=== PATIENT | female | born 1955 | race Hispanic/Latino ===

== ENCOUNTER 2024-07-01 12:24 | Outpatient (RCR) | payer MEDICARE ==
[~2024-07-01 12:24] MED LIST: COLLAGENASE OINTMENT 30 GM TUBE ONE; LIDOCAINE VISC 2% SOLN 15 ML UDC ONE; LIDOCAINE/PRILOCAINE 2.5-2.5% KIT ONE
== END 2024-07-04 ==
LOC: WCC 12:24
PROVIDERS: ATTEND Nurse Practitioner Family
DX: I87.312 Chronic venous hypertension (idiopathic) with ulcer of left lower extremity (principal); L97.822 Non-pressure chronic ulcer of other part of left lower leg with fat layer exposed

== ENCOUNTER 2024-07-22 12:48 | Outpatient (RCR) | payer MEDICARE ==
[2024-07-22] MEDS ORDERED: MINERAL OIL/PETROLAT/GLYCERI 6OZ BTL ONE (15:32)
[2024-07-30] MEDS ORDERED: LIDOCAINE VISC 2% SOLN 15 ML UDC ONE (13:31)
== END 2024-08-03 ==
LOC: WCC 12:48
PROVIDERS: ATTEND Nurse Practitioner Family
DX: I87.312 Chronic venous hypertension (idiopathic) with ulcer of left lower extremity (principal); L97.822 Non-pressure chronic ulcer of other part of left lower leg with fat layer exposed

== ENCOUNTER 2024-09-02 13:02 | Outpatient (RCR) | payer MEDICARE ==
[~2024-09-02 13:02] MED LIST changes: -COLLAGENASE OINTMENT 30 GM TUBE ONE; +MINERAL OIL/PETROLAT/GLYCERI 6OZ BTL ONE
== END 2024-09-03 ==
LOC: WCC 13:02
PROVIDERS: ATTEND Nurse Practitioner Family
DX: I87.312 Chronic venous hypertension (idiopathic) with ulcer of left lower extremity (principal); L97.822 Non-pressure chronic ulcer of other part of left lower leg with fat layer exposed

== ENCOUNTER 2024-12-07 05:40 | Inpatient (IN) | payer MEDICARE ==
[2024-12-03 13:20] LABS: ANION GAP 18.1 mmol/L (8-16); CALCIUM 9.4 mg/dL (8.4-10.2); CREATININE, SERUM 0.95 mg/dL (0.57-1.11); POTASSIUM 4.1 mmol/L (3.5-5.1)
[2024-12-03 14:14] LABS: BASOPHILS % 0.5 % (0.0-1.0); EOSINOPHILS # (AUTO) 0.2 (0.0-0.4); EOSINOPHILS % 2.9 % (0.0-6.0); HEMATOCRIT 38.7 % (34.2-44.1); HEMOGLOBIN 12.6 g/dL (12.0-16.0); LYMPHOCYTES # (AUTO) 0.9 (1.0-3.2); LYMPHOCYTES % 15.2 % (18.0-39.1); MEAN CORPUSCULAR HEMOGLOBIN 27.1 pg (28-32); MEAN CORPUSCULAR HGB CONC 32.6 g/dL (31-35); MEAN CORPUSCULAR VOLUME 83.2 fL (81-99); MONOCYTES # (AUTO) 0.5 (0.2-0.8); MONOCYTES % 8.8 % (4.4-11.3); NEUTROPHILS % 72.2 % (38.7-80.0); PLATELET COUNT 258 x10e3/uL (140-360); RED BLOOD COUNT 4.65 x10e6/uL (3.6-5.1); RED CELL DISTRIBUTION WIDTH 13.1 % (11.7-14.4); WHITE BLOOD COUNT 5.59 x10e3/uL (4.8-10.8)
[~2024-12-07] VITALS: Ht 167.6 cm; Wt 81.3 kg
[~2024-12-07 05:40] MED LIST changes: +AMLODIPINE BESYL5 MG PO; +ASPIRIN81 MG PO; +DOXAZOSIN MESYLA2 MG PO; +GABAPENTIN300 MG PO; +GLIPIZIDE ER5 MG PO; +LANTUS 3ML100 UNITS/ SC; -LIDOCAINE VISC 2% SOLN 15 ML UDC ONE; -LIDOCAINE/PRILOCAINE 2.5-2.5% KIT ONE; +LISINOPRIL-HCT1 EACH PO; +METFORMIN HCL500 MG PO; +METOPROLOL SUCC50 MG PO; -MINERAL OIL/PETROLAT/GLYCERI 6OZ BTL ONE; +VIT B12 PO
[2024-12-07] MEDS: PIPERACILLIN/TAZOBACTAM 3.375 GM VIAL ONE (05:56)
[2024-12-07] MEDS: CLINDAMYCIN 600MG / 50ML 50 ML IV ONE (05:57)
[2024-12-07] MEDS: LACTATED RINGER'S 1,000 ML ONE (05:57)
[2024-12-07] MEDS: GENTAMICIN 80MG/NS 100 ML 200 ML IV ONE (05:57)
[2024-12-07] MEDS ORDERED: LIDOCAINE HCL 2% LOCAL INJ 5 ML SDV VIAL INJ ONE (07:09)
[2024-12-07] MEDS ORDERED: ROCURONIUM BROMIDE 1 ML IV ONE (07:09)
[2024-12-07] MEDS ORDERED: FENTANYL CITRATE/PF 100MCG/2 ML INJ ONE ×2 (07:09→09:09)
[2024-12-07] MEDS ORDERED: PROPOFOL IV EMULSION 10 MG/ML 20 ML VIAL ONE (07:10)
[2024-12-07] MEDS ORDERED: SEVOFLURANE INHAL SOLN 250 ML PEN BTL ONE (07:10)
[2024-12-07] MEDS ORDERED: ACETAMINOPHEN 1000 MG/100 ML 100 ML IV ONE (07:10)
[2024-12-07] MEDS ORDERED: DEXAMETHASONE SOD PHOS INJ 4 MG/ML SDV ONE (07:37)
[2024-12-07] MEDS ORDERED: ONDANSETRON HCL INJ 2MG/ML 2ML 2 MG/ML VIAL ONE (07:37)
[2024-12-07] MEDS ORDERED: FAMOTIDINE 20 MG/2 ML VIAL IV ONE (07:37)
[2024-12-07] MEDS ORDERED: SUGAMMADEX SODIUM 200 MG/2 ML VIAL IV ONE (07:39)
[2024-12-07] MEDS ORDERED: EPHEDRINE SULFATE INJ 50 MG/ML VIAL ONE (07:44)
[2024-12-07] MEDS: ONDANSETRON HCL INJ 2MG/ML 2ML 2 MG/ML VIAL ONE (09:40)
[2024-12-07 10:00] VITALS: BP 153/65; PULSE 67; RESP 12; TEMP 97.7; O2SAT 97
[2024-12-07] MEDS: PROMETHAZINE HCL (IM) 25 MG/ML VIAL IM ONE (10:05)
[2024-12-07] MEDS ORDERED: PHENAZOPYRIDINE HCL 100 MG TAB PO PRN (10:15)
[2024-12-07] MEDS ORDERED: ACETAMINOPHEN 1000 MG/100 ML IV PRN (10:15)
[2024-12-07] MEDS ORDERED: DIPHENHYDRAMINE HCL 25 MG CAP PO PRN (10:15)
[2024-12-07 10:34] LABS: BASOPHILS % 0.4 % (0.0-1.0); EOSINOPHILS # (AUTO) 0.2 (0.0-0.4); EOSINOPHILS % 2.2 % (0.0-6.0); HEMATOCRIT 33.6 % (34.2-44.1); MEAN CORPUSCULAR HEMOGLOBIN 27.3 pg (28-32); MEAN CORPUSCULAR HGB CONC 32.7 g/dL (31-35); MEAN CORPUSCULAR VOLUME 83.4 fL (81-99); MONOCYTES # (AUTO) 0.5 (0.2-0.8); MONOCYTES % 7.1 % (4.4-11.3); NEUTROPHILS # (AUTO) 5.1 (2.1-6.9); NEUTROPHILS % 75.7 % (38.7-80.0); PLATELET COUNT 193 x10e3/uL (140-360); RED BLOOD COUNT 4.03 x10e6/uL (3.6-5.1); RED CELL DISTRIBUTION WIDTH 13.4 % (11.7-14.4); WHITE BLOOD COUNT 6.77 x10e3/uL (4.8-10.8)
[2024-12-07 11:13] LABS: CALCIUM 8.4 mg/dL (8.4-10.2); CREATININE, SERUM 0.74 mg/dL (0.57-1.11)
[2024-12-07 12:00] VITALS: BP 131/58; PULSE 89; RESP 20; TEMP 97.7; O2SAT 99
[2024-12-07] MEDS: SODIUM CHLORIDE 0.9% 1000ML 1,000 ML IV SCH (13:38)
[2024-12-07 14:02] VITALS: BP 134/56; PULSE 68; RESP 16; TEMP 97.7; O2SAT 98
[2024-12-07 16:15] VITALS: PULSE 96; RESP 18; O2SAT 96
[2024-12-07] MEDS: SCOPOLAMINE 1 MG PATCH ONE (18:31)
[2024-12-07 20:00] VITALS: BP 153/68; PULSE 105; RESP 18; TEMP 98.1; O2SAT 100
[2024-12-07 20:04] VITALS: PULSE 89; RESP 18; O2SAT 98
[2024-12-07] MEDS ORDERED: DEXTROSE 50% SYRINGE 50 ML IV PRN (20:30)
[2024-12-07] MEDS: INSULIN GLARGINE 100 UNITS/ML VIAL SQ SCH (22:13)
[2024-12-07] MEDS: INSULIN LISPRO 100 UNIT/1 ML 3ML VIAL SQ SCH (22:14)
[2024-12-08] VITALS (9 sets, daily range): BP systolic 141–161; BP diastolic 55–71; PULSE 74–96; RESP 16–20; TEMP 98–99.2; O2SAT 96–100
[2024-12-08] MEDS: ACETAMINOPHEN/CODEINE 300MG - 30MG TAB PO PRN (02:38)
[2024-12-08 05:43] LABS: BASOPHILS % 0.3 % (0.0-1.0); EOSINOPHILS # (AUTO) 0.1 (0.0-0.4); EOSINOPHILS % 1.1 % (0.0-6.0); HEMATOCRIT 31.7 % (34.2-44.1); HEMOGLOBIN 10.2 g/dL (12.0-16.0); LYMPHOCYTES # (AUTO) 0.8 (1.0-3.2); LYMPHOCYTES % 9.2 % (18.0-39.1); MEAN CORPUSCULAR HEMOGLOBIN 26.8 pg (28-32); MEAN CORPUSCULAR HGB CONC 32.2 g/dL (31-35); MEAN CORPUSCULAR VOLUME 83.2 fL (81-99); MONOCYTES # (AUTO) 0.8 (0.2-0.8); MONOCYTES % 9.2 % (4.4-11.3); NEUTROPHILS # (AUTO) 7.3 (2.1-6.9); NEUTROPHILS % 79.7 % (38.7-80.0); PLATELET COUNT 219 x10e3/uL (140-360); RED BLOOD COUNT 3.81 x10e6/uL (3.6-5.1); RED CELL DISTRIBUTION WIDTH 13.5 % (11.7-14.4); WHITE BLOOD COUNT 9.11 x10e3/uL (4.8-10.8)
[2024-12-08] MEDS ORDERED: GABAPENTIN 300 MG CAP PO PRN (06:00)
[2024-12-08 06:04] LABS: ANION GAP 15.7 mmol/L (8-16); CALCIUM 8.8 mg/dL (8.4-10.2); CREATININE, SERUM 0.71 mg/dL (0.57-1.11); POTASSIUM 3.7 mmol/L (3.5-5.1)
[2024-12-08] MEDS: AMLODIPINE BESYLATE 5 MG TAB PO SCH (09:28)
[2024-12-08] MEDS: DOXAZOSIN MESYLATE 2 MG TAB PO SCH (09:28)
[2024-12-08] MEDS: GLIPIZIDE 5 MG TAB ER PO SCH (09:28)
[2024-12-08] MEDS: METOPROLOL SUCCINATE 50 MG TAB XL PO SCH (09:29)
[2024-12-08] MEDS: ONDANSETRON HCL INJ 2MG/ML 2ML 2 MG/ML VIAL IV PRN (11:03)
[2024-12-08] MEDS: Morphine 2mg Syringe 2 MG/ML SYR IV PRN (11:03)
[2024-12-09 05:08] LABS: BASOPHILS % 0.5 % (0.0-1.0); EOSINOPHILS # (AUTO) 0.2 (0.0-0.4); EOSINOPHILS % 2.3 % (0.0-6.0); HEMATOCRIT 31.9 % (34.2-44.1); HEMOGLOBIN 10.3 g/dL (12.0-16.0); LYMPHOCYTES # (AUTO) 1.2 (1.0-3.2); LYMPHOCYTES % 15.1 % (18.0-39.1); MEAN CORPUSCULAR HGB CONC 32.3 g/dL (31-35); MEAN CORPUSCULAR VOLUME 83.7 fL (81-99); MONOCYTES # (AUTO) 0.9 (0.2-0.8); MONOCYTES % 10.8 % (4.4-11.3); NEUTROPHILS # (AUTO) 5.8 (2.1-6.9); NEUTROPHILS % 70.8 % (38.7-80.0); PLATELET COUNT 203 x10e3/uL (140-360); RED BLOOD COUNT 3.81 x10e6/uL (3.6-5.1); RED CELL DISTRIBUTION WIDTH 13.3 % (11.7-14.4); WHITE BLOOD COUNT 8.15 x10e3/uL (4.8-10.8)
[2024-12-09 05:34] LABS: ANION GAP 11.7 mmol/L (8-16); CALCIUM 8.1 mg/dL (8.4-10.2); CREATININE, SERUM 0.77 mg/dL (0.57-1.11); POTASSIUM 3.7 mmol/L (3.5-5.1)
[2024-12-09 08:00] VITALS: BP 135/54; PULSE 81; RESP 18; TEMP 98; O2SAT 100
[2024-12-09 08:40] VITALS: BP 135/54; PULSE 81; RESP 18; TEMP 98; O2SAT 100
[2024-12-09 09:05] VITALS: PULSE 79; RESP 18; O2SAT 97
[2024-12-09 12:00] VITALS: BP 135/60; PULSE 77; RESP 18; TEMP 98; O2SAT 100
[2024-12-09 16:33] VITALS: BP 140/63; PULSE 72; RESP 18; TEMP 99.2; O2SAT 99
== END 2024-12-09 17:00 | disposition home or self-care (01) | DRG 748 ==
LOC: OR 05:40 → PACU V 10:07 → MED/SURG 12:20
PROVIDERS: ADMIT Urology; ATTEND Internal Medicine
PROC: 0TSD0ZZ Reposition Urethra, Open Approach (ICD-10-PCS; 2024-12-07)
PROC: BT141ZZ Fluoroscopy of Kidneys, Ureters and Bladder using Low Osmolar Contrast (ICD-10-PCS; 2024-12-07)
PROC: 0JUC0KZ Supplement of Pelvic Region Subcutaneous Tissue and Fascia with Nonautologous Tissue Substitute, Open Approach (ICD-10-PCS; principal; 2024-12-07 07:29)
DX: N81.10 Cystocele, unspecified (principal); N39.0 Urinary tract infection, site not specified; N39.3 Stress incontinence (female) (male); R31.29 Other microscopic hematuria; N95.2 Postmenopausal atrophic vaginitis; I10 Essential (primary) hypertension; E11.9 Type 2 diabetes mellitus without complications; Z79.84 Long term (current) use of oral hypoglycemic drugs; Z79.4 Long term (current) use of insulin; E66.9 Obesity, unspecified; Z68.28 Body mass index [BMI] 28.0-28.9, adult; Z79.899 Other long term (current) drug therapy; Z79.82 Long term (current) use of aspirin
CPT/HCPCS: 36415; 71046; 74420; 80048; 82948; 83735; 85025; 93005; 94799; 96372; C1758; C1762; J1100; J1580; J1815; J2003; J2270; J2405; J2543; J2550; J7030

== ENCOUNTER 2025-01-02 20:49 | Emergency (ER) | payer MEDICARE ==
[~2025-01-02] VITALS: Ht 167.6 cm; Wt 81.2 kg
[2025-01-02 22:28] VITALS: PULSE 76; RESP 16; TEMP 98.2; O2SAT 100
== END 2025-01-02 22:20 | disposition home or self-care (01) ==
LOC: ER 21:00
DX: R33.9 Retention of urine, unspecified (principal); E11.9 Type 2 diabetes mellitus without complications
CPT/HCPCS: 51700; 87086; 99283

== ENCOUNTER → 2025-02-03 | Day surgery (SDC) | payer MEDICARE ==
[~2025-02-03] MED LIST changes: +ACETAMINOPHEN 1000 MG/100 ML 100 ML IV ONE; +DEXAMETHASONE SOD PHOS INJ 4 MG/ML SDV ONE; +FENTANYL CITRATE/PF 100MCG/2 ML INJ ONE; +LIDOCAINE HCL 2% LOCAL INJ 5 ML SDV VIAL INJ ONE; +METOCLOPRAMIDE HCL 10 MG/2ML VIAL ONE; +ONDANSETRON HCL INJ 2MG/ML 2ML 2 MG/ML VIAL ONE; +PHENYLEPHRINE HCL 1% 10 MG/ML VIAL ONE; +PROPOFOL IV EMULSION 10 MG/ML 20 ML VIAL ONE; +SEVOFLURANE INHAL SOLN 250 ML PEN BTL ONE
[2025-02-03] MEDS: PIPERACILLIN/TAZOBACTAM 3.375 GM VIAL ONE (11:53)
[2025-02-03] MEDS: CLINDAMYCIN 600MG / 50ML 50 ML IV ONE (11:53)
[2025-02-03] MEDS: LACTATED RINGER'S 1,000 ML ONE (11:54)
[2025-02-03 12:09] LABS: BASOPHILS % 0.6 % (0.0-1.0); EOSINOPHILS # (AUTO) 0.3 (0.0-0.4); EOSINOPHILS % 4.2 % (0.0-6.0); HEMATOCRIT 36.8 % (34.2-44.1); HEMOGLOBIN 12.1 g/dL (12.0-16.0); LYMPHOCYTES # (AUTO) 1.5 (1.0-3.2); LYMPHOCYTES % 22.3 % (18.0-39.1); MEAN CORPUSCULAR HEMOGLOBIN 26.7 pg (28-32); MEAN CORPUSCULAR HGB CONC 32.9 g/dL (31-35); MEAN CORPUSCULAR VOLUME 81.2 fL (81-99); MONOCYTES # (AUTO) 0.7 (0.2-0.8); MONOCYTES % 9.9 % (4.4-11.3); NEUTROPHILS # (AUTO) 4.3 (2.1-6.9); NEUTROPHILS % 62.6 % (38.7-80.0); PLATELET COUNT 266 x10e3/uL (140-360); RED BLOOD COUNT 4.53 x10e6/uL (3.6-5.1); RED CELL DISTRIBUTION WIDTH 13.4 % (11.7-14.4); WHITE BLOOD COUNT 6.87 x10e3/uL (4.8-10.8)
[2025-02-03 12:45] LABS: ALBUMIN/GLOBULIN RATIO 1.4 (0.8-2.0); ANION GAP 17.8 mmol/L (8-16); BILIRUBIN,TOTAL 0.8 mg/dL (0.2-1.2); CALCIUM 9.2 mg/dL (8.4-10.2); CREATININE, SERUM 0.78 mg/dL (0.57-1.11); POTASSIUM 3.8 mmol/L (3.5-5.1); TOTAL PROTEIN 6.9 g/dL (6.5-8.1)
[2025-02-03] MEDS: SCOPOLAMINE 1 MG PATCH ONE (14:21)
[2025-02-03 15:54] VITALS: TEMP 97.9
[2025-02-03 17:05] VITALS: BP 155/67; PULSE 71; RESP 16; O2SAT 98
== END | disposition home or self-care (01) ==
LOC: OR 11:01
PROVIDERS: ATTEND Urology
DX: N84.2 Polyp of vagina (principal); S31.40XA Unspecified open wound of vagina and vulva, initial encounter; R81 Glycosuria; N39.0 Urinary tract infection, site not specified; N95.2 Postmenopausal atrophic vaginitis; N81.89 Other female genital prolapse; N36.41 Hypermobility of urethra; R39.14 Feeling of incomplete bladder emptying; R35.1 Nocturia; E11.9 Type 2 diabetes mellitus without complications; N32.89 Other specified disorders of bladder; I10 Essential (primary) hypertension; J45.909 Unspecified asthma, uncomplicated; X58.XXXA Exposure to other specified factors, initial encounter; Z88.8 Allergy status to other drugs, medicaments and biological substances; Z79.84 Long term (current) use of oral hypoglycemic drugs; Z79.899 Other long term (current) drug therapy; Z79.82 Long term (current) use of aspirin
CPT/HCPCS: 36415; 57135; 58999; 80053; 82948; 85025; 88305; J0131; J1100; J2003; J2371; J2405; J2543; J2704; J2765; J3010; J7121